=== PATIENT | female | born 1970 | race Caucasian/White ===

== ENCOUNTER 2019-09-20 17:26 | Inpatient (IN) | payer MEDICAID ==
[~2019-09-20] VITALS: Ht 167.6 cm; Wt 67.6 kg
[2019-09-20] MEDS ORDERED: LORazepam 2 MG/ML VIAL IM ONE (21:15)
[2019-09-20] MEDS ORDERED: HALOPERIDOL LACTATE 5 MG/ML VIAL IM ONE (21:15)
[2019-09-20] MEDS ORDERED: DiphenhydrAMINE HCL 50 MG/ML VIAL IM ONE (21:15)
[2019-09-20 22:36] LABS: LYMPHOCYTES # (AUTO) 0.6 K/uL (1.0-4.8); MONOCYTES # (AUTO) 0.5 K/uL (0.1-1.0)
[2019-09-20 22:41] LABS: BASOPHILS % (AUTO) 0.6 % (0.0-2.0); EOSINOPHILS % (AUTO) 0.2 % (1.0-6.0); HEMATOCRIT 33.3 % (36-46); LYMPHOCYTES % (AUTO) 22.1 % (22.0-44.0); MEAN CORPUSCULAR HEMOGLOBIN 28.6 pg (26.0-34.0); MEAN CORPUSCULAR VOLUME 87 fL (80-100); MONOCYTES % (AUTO) 16.7 % (2.0-9.0); NEUTROPHILS # (AUTO) 1.7 K/uL (1.8-7.7); NEUTROPHILS % (AUTO) 60.4 % (40.0-70.0); PLATELET COUNT (AUTO) 107 K/uL (150-450); RED BLOOD CELL COUNT(AUTO) 3.84 MIL/uL (4.00-5.20); RED CELL DISTRIBUTION WIDTH 19.9 % (11.5-14.5)
[2019-09-20 22:49] LABS: ANION GAP 12 mmol/L (8-16); CALCIUM, TOTAL 8.3 mg/dL (8.8-10.5); CARBON DIOXIDE 22 mmol/L (22-29); CHLORIDE 103 mmol/L (98-107); CREATININE 0.78 mg/dL (0.60-1.30); GLOMERULAR FILTR. RATE CALC > 60 mL/min (>60); GLUCOSE,RANDOM 104 mg/dL (70-110); POTASSIUM 3.9 mmol/L (3.5-5.1); SODIUM SERUM 137 mmol/L (136-145); UREA NITROGEN, BLOOD 8 mg/dL (7-18)
[2019-09-20 22:54] LABS: ALANINE AMINOTRANSFERASE 89 U/L (12-78); ALBUMIN 2.9 g/dL (3.4-5.0); ALKALINE PHOSPHATASE 184 U/L (46-116); ASPARTATE AMINOTRANSFERASE 130 U/L (15-37); BILIRUBIN,TOTAL 0.9 mg/dL (0.1-1.0)
[2019-09-20] MEDS ORDERED: HALOPERIDOL 5 MG TABLET PO PRN (23:15)
[2019-09-21 01:45] VITALS: BP 138/89
[2019-09-21] MEDS ORDERED: INFLUENZA VIRUS VACCINE QVS 2019-20 (3YR+)/PF 60 MCG/0.5 ML SYRINGE IM ONE (04:00)
[2019-09-21 07:44] LABS: CHOL/HDL RATIO 1.4 (3.9-5.7); CHOLESTEROL 114 mg/dL (131-200); HDL CHOLESTEROL 79 mg/dL (40-60)
[2019-09-21 08:01] LABS: TRIGLYCERIDES < 15 mg/dL (15-150)
[2019-09-21 08:02] LABS: LDL CHOL (CALC.) 32 mg/dL (0-130)
[2019-09-21 08:33] VITALS: BP 149/91
[2019-09-21] MEDS ORDERED: PETROLATUM,WHITE 28 GM JELLY TP PRN (09:15)
[2019-09-21] MEDS ORDERED: NICOTINE 14 MG/24 HOUR PATCH TD PRN (09:15)
[2019-09-21] MEDS ORDERED: ALBUTEROL SULFATE HFA 90 MCG/PUFF 8 GM INHALER IH PRN (09:15)
[2019-09-21] MEDS ORDERED: MAG HYDROX/AL HYDROX/SIMETH ES 30 ML SUSPENSION UDCUP PO PRN (09:15)
[2019-09-21] MEDS ORDERED: MAGNESIUM HYDROXIDE SUSPENSION 30 ML UDCUP PO PRN (09:15)
[2019-09-21] MEDS ORDERED: GuaiFENesin/D-METHORPHAN [SUGAR-FREE] 200-20MG/10 ML SYRUP UDCUP PO PRN (09:15)
[2019-09-21] MEDS ORDERED: ONDANSETRON HCL 4 MG TABLET PO PRN (09:15)
[2019-09-21] MEDS ORDERED: DOCUSATE SODIUM 100 MG CAPSULE PO PRN (09:15)
[2019-09-21] MEDS ORDERED: LOPERAMIDE HCL 2 MG CAPSULE PO PRN (09:15)
[2019-09-21] MEDS ORDERED: CloNIDine HCL 0.1 MG TABLET PO PRN (09:15)
[2019-09-21] MEDS ORDERED: OLANZapine 5 MG TABLET PO ONE (13:00)
[2019-09-21 16:15] VITALS: BP 132/68
[2019-09-21] MEDS: OLANZapine 2.5 MG TABLET PO SCH (16:48)
[2019-09-22 03:00] VITALS: BP 140/85
[2019-09-22 08:16] VITALS: BP 121/67
[2019-09-22] MEDS: OLANZapine 2.5 MG TABLET PO SCH ×2 (08:54→16:49)
[2019-09-22 16:08] VITALS: BP 126/73
[2019-09-23 05:29] VITALS: BP 109/66
[2019-09-23 08:19] VITALS: BP 116/71
[2019-09-23] MEDS: OLANZapine 2.5 MG TABLET PO SCH ×2 (09:05→16:45)
[2019-09-23 16:30] VITALS: BP 122/67
[2019-09-24 04:05] VITALS: BP 112/64
[2019-09-24] MEDS ORDERED: OLAN2.5T3 PO (06:28)
[2019-09-24] MEDS: OLANZapine 2.5 MG TABLET PO SCH ×2 (08:17→16:48)
[2019-09-24 08:20] VITALS: BP 100/57
[2019-09-24 16:43] VITALS: BP 117/63
[2019-09-25 05:21] VITALS: BP 112/62
[2019-09-25 08:17] VITALS: BP 119/62
[2019-09-25 08:29] LABS: BASOPHILS % (AUTO) 1.5 % (0.0-2.0); EOSINOPHILS % (AUTO) 1.9 % (1.0-6.0); HEMATOCRIT 37.7 % (36-46); HEMOGLOBIN 12.2 g/dL (12.0-16.0); LYMPHOCYTES # (AUTO) 1.5 K/uL (1.0-4.8); LYMPHOCYTES % (AUTO) 42.4 % (22.0-44.0); MEAN CORPUSCULAR HEMOGLOBIN 28.2 pg (26.0-34.0); MEAN CORPUSCULAR HGB CONC 32.3 G/dL (31.0-37.0); MEAN CORPUSCULAR VOLUME 87 fL (80-100); MONOCYTES # (AUTO) 0.5 K/uL (0.1-1.0); MONOCYTES % (AUTO) 14.7 % (2.0-9.0); NEUTROPHILS # (AUTO) 1.4 K/uL (1.8-7.7); NEUTROPHILS % (AUTO) 39.5 % (40.0-70.0); PLATELET COUNT (AUTO) 123 K/uL (150-450); RED BLOOD CELL COUNT(AUTO) 4.32 MIL/uL (4.00-5.20); RED CELL DISTRIBUTION WIDTH 19.8 % (11.5-14.5)
[2019-09-25] MEDS: OLANZapine 2.5 MG TABLET PO SCH ×2 (08:39→17:06)
[2019-09-25 16:30] VITALS: BP 103/52
[2019-09-26 04:59] VITALS: BP 100/62
[2019-09-26] MEDS: OLANZapine 2.5 MG TABLET PO SCH ×2 (08:15→18:19)
[2019-09-26 08:20] VITALS: BP 100/53
[2019-09-26 16:10] VITALS: BP 117/71
[2019-09-27 05:17] VITALS: BP 101/66
[2019-09-27 08:10] VITALS: BP 104/62
[2019-09-27] MEDS: OLANZapine 2.5 MG TABLET PO SCH ×2 (08:34→16:49)
[2019-09-27 16:21] VITALS: BP 114/61
[2019-09-28 05:06] VITALS: BP 102/64
[2019-09-28] MEDS: OLANZapine 2.5 MG TABLET PO SCH ×2 (08:08→16:07)
[2019-09-28 08:13] VITALS: BP 102/55
[2019-09-28 16:17] VITALS: BP 120/60
[2019-09-28 18:54] VITALS: BP 110/59
[2019-09-28] MEDS: ACETAMINOPHEN 325 MG TABLET PO PRN (18:54)
[2019-09-29 05:32] VITALS: BP 100/64
[2019-09-29 08:21] VITALS: BP 118/61
[2019-09-29] MEDS: OLANZapine 2.5 MG TABLET PO SCH ×2 (08:22→16:36)
[2019-09-29 16:06] VITALS: BP 103/71
[2019-09-30 05:23] VITALS: BP 120/77
[2019-09-30] MEDS: OLANZapine 2.5 MG TABLET PO SCH ×2 (08:13→16:46)
[2019-09-30 10:40] VITALS: BP 117/72
[2019-09-30 16:10] VITALS: BP 108/62
[2019-10-01 05:46] VITALS: BP 88/55
[2019-10-01] MEDS: OLANZapine 2.5 MG TABLET PO SCH ×2 (08:03→16:22)
[2019-10-01 08:41] VITALS: BP 99/58
[2019-10-01 16:16] VITALS: BP 100/60
[2019-10-02 06:23] VITALS: BP 110/60
[2019-10-02 08:22] VITALS: BP 99/58
[2019-10-02] MEDS: OLANZapine 2.5 MG TABLET PO SCH ×2 (08:41→16:54)
[2019-10-02 14:26] VITALS: BP 100/60
[2019-10-02 16:14] VITALS: BP 99/60
[2019-10-03 05:29] VITALS: BP 102/63
[2019-10-03 08:27] VITALS: BP 103/55
[2019-10-03] MEDS: OLANZapine 2.5 MG TABLET PO SCH ×2 (08:53→16:46)
[2019-10-03 16:44] VITALS: BP 100/60
[2019-10-04 05:31] VITALS: BP 99/64
[2019-10-04 08:30] VITALS: BP 100/59
[2019-10-04] MEDS: OLANZapine 2.5 MG TABLET PO SCH ×2 (09:21→16:31)
[2019-10-04 16:36] VITALS: BP 100/53
[2019-10-05 06:20] VITALS: BP 122/63
[2019-10-05 08:08] VITALS: BP 125/61
[2019-10-05] MEDS: OLANZapine 2.5 MG TABLET PO SCH ×2 (08:54→16:50)
[2019-10-05 12:37] VITALS: BP 120/81
[2019-10-05] MEDS: ACETAMINOPHEN 325 MG TABLET PO PRN (12:39)
[2019-10-05 16:18] VITALS: BP 113/66
[2019-10-05] MEDS: IBUPROFEN 400 MG TABLET PO PRN (18:05)
[2019-10-06 05:20] VITALS: BP 113/60
[2019-10-06 08:30] VITALS: BP 100/50
[2019-10-06] MEDS: OLANZapine 2.5 MG TABLET PO SCH ×2 (09:03→16:46)
[2019-10-06 12:34] VITALS: BP 108/68
[2019-10-06] MEDS: IBUPROFEN 400 MG TABLET PO PRN (12:34)
[2019-10-06] MEDS ORDERED: MULTIVITAMINS WITH MINERALS, THERAPEUTIC TABLET PO ONE (14:00)
[2019-10-06 17:19] VITALS: BP 100/50
[2019-10-07 05:08] VITALS: BP 102/62
[2019-10-07 08:20] VITALS: BP 109/67
[2019-10-07] MEDS: OLANZapine 2.5 MG TABLET PO SCH ×2 (08:35→16:05)
[2019-10-07 16:20] VITALS: BP 108/69
[2019-10-07] MEDS: IBUPROFEN 400 MG TABLET PO PRN (19:55)
[2019-10-08 04:08] VITALS: BP 102/62
[2019-10-08 08:21] VITALS: BP 105/57
[2019-10-08] MEDS: OLANZapine 2.5 MG TABLET PO SCH ×2 (08:53→16:42)
[2019-10-08] MEDS: IBUPROFEN 400 MG TABLET PO PRN (08:54)
[2019-10-08 16:00] VITALS: BP 102/65
[2019-10-09 05:14] VITALS: BP 105/66
[2019-10-09 08:08] VITALS: BP 114/63
[2019-10-09] MEDS: OLANZapine 2.5 MG TABLET PO SCH ×2 (08:15→16:29)
[2019-10-09 16:01] VITALS: BP 111/60
[2019-10-09] MEDS: IBUPROFEN 400 MG TABLET PO PRN (16:29)
[2019-10-09] MEDS: DICLOFENAC SODIUM 1% 100 GM GEL [2GM] TP PRN (16:29)
[2019-10-10 05:11] VITALS: BP 121/71
[2019-10-10 08:51] VITALS: BP 100/55
[2019-10-10] MEDS: OLANZapine 5 MG TABLET PO SCH ×2 (09:45→16:19)
[2019-10-10 16:12] VITALS: BP 103/64
[2019-10-11 04:42] VITALS: BP 101/62
[2019-10-11 08:28] VITALS: BP 100/55
[2019-10-11] MEDS: OLANZapine 5 MG TABLET PO SCH ×2 (08:32→16:01)
[2019-10-11] MEDS: DICLOFENAC SODIUM 1% 100 GM GEL [2GM] TP PRN ×2 (16:02→20:09)
[2019-10-11 16:16] VITALS: BP 100/60
[2019-10-11] MEDS: IBUPROFEN 400 MG TABLET PO PRN (17:48)
[2019-10-11] MEDS: ZOLPIDEM TARTRATE 10 MG TABLET PO PRN (20:20)
[2019-10-12 06:06] VITALS: BP 101/67
[2019-10-12 08:15] VITALS: BP 103/65
[2019-10-12] MEDS: OLANZapine 5 MG TABLET PO SCH ×2 (08:45→16:53)
[2019-10-12 16:50] VITALS: BP 99/68
[2019-10-12] MEDS: DICLOFENAC SODIUM 1% 100 GM GEL [2GM] TP PRN (16:53)
[2019-10-12] MEDS: IBUPROFEN 400 MG TABLET PO PRN (16:54)
[2019-10-13 05:17] VITALS: BP 104/68
[2019-10-13 08:15] VITALS: BP 100/59
[2019-10-13] MEDS: OLANZapine 5 MG TABLET PO SCH ×2 (08:27→16:22)
[2019-10-13 16:01] VITALS: BP 109/70
[2019-10-14 04:28] VITALS: BP 100/72
[2019-10-14] MEDS: OLANZapine 5 MG TABLET PO SCH ×2 (08:28→16:28)
[2019-10-14 13:17] VITALS: BP 96/58
[2019-10-14 16:28] VITALS: BP 101/85
[2019-10-14] MEDS: IBUPROFEN 400 MG TABLET PO PRN (16:28)
[2019-10-14 16:29] VITALS: BP 101/85
[2019-10-15 02:46] VITALS: BP 100/76
[2019-10-15 08:07] VITALS: BP 100/59
[2019-10-15] MEDS: OLANZapine 5 MG TABLET PO SCH ×2 (08:33→16:01)
[2019-10-15 16:06] VITALS: BP 100/63
[2019-10-16 07:03] VITALS: BP 110/68
[2019-10-16 08:16] VITALS: BP 100/53
[2019-10-16] MEDS: MULTIVITAMINS, THERAPEUTIC TABLET PO SCH (08:51)
[2019-10-16] MEDS: OLANZapine 5 MG TABLET PO SCH ×2 (08:51→16:57)
[2019-10-16 17:30] VITALS: BP 99/62
[2019-10-17 01:35] VITALS: BP 123/78
[2019-10-17 08:41] VITALS: BP 100/59
[2019-10-17] MEDS: OLANZapine 5 MG TABLET PO SCH ×2 (09:13→16:44)
[2019-10-17] MEDS: MULTIVITAMINS, THERAPEUTIC TABLET PO SCH (09:13)
[2019-10-17] MEDS: IBUPROFEN 400 MG TABLET PO PRN ×2 (10:14→16:44)
[2019-10-17 16:12] VITALS: BP 100/53
[2019-10-18 04:34] VITALS: BP 102/63
[2019-10-18 08:29] VITALS: BP 100/57
[2019-10-18] MEDS: LORazepam 2 MG TABLET PO PRN (09:52)
[2019-10-18] MEDS: OLANZapine 5 MG TABLET PO SCH ×2 (09:52→16:44)
[2019-10-18] MEDS: MULTIVITAMINS, THERAPEUTIC TABLET PO SCH (09:52)
[2019-10-18 16:02] VITALS: BP 102/63
[2019-10-18] MEDS: ZOLPIDEM TARTRATE 10 MG TABLET PO PRN (20:34)
[2019-10-18] MEDS: DICLOFENAC SODIUM 1% 100 GM GEL [2GM] TP PRN (20:34)
[2019-10-19 06:38] VITALS: BP 99/60
[2019-10-19 08:17] VITALS: BP 100/58
[2019-10-19] MEDS: OLANZapine 5 MG TABLET PO SCH ×2 (08:52→16:10)
[2019-10-19] MEDS: MULTIVITAMINS, THERAPEUTIC TABLET PO SCH (08:52)
[2019-10-19 16:04] VITALS: BP 100/69
[2019-10-19] MEDS: IBUPROFEN 400 MG TABLET PO PRN (17:16)
[2019-10-19] MEDS: LORazepam 2 MG TABLET PO PRN (21:07)
[2019-10-20 06:22] VITALS: BP 105/62
[2019-10-20 08:19] VITALS: BP 100/65
[2019-10-20] MEDS: MULTIVITAMINS, THERAPEUTIC TABLET PO SCH (09:10)
[2019-10-20] MEDS: OLANZapine 5 MG TABLET PO SCH ×2 (09:10→16:44)
[2019-10-20] MEDS: IBUPROFEN 400 MG TABLET PO PRN (16:44)
[2019-10-20 18:05] VITALS: BP 94/50
[2019-10-21 03:56] VITALS: BP 100/62
[2019-10-21 08:19] VITALS: BP 100/59
[2019-10-21] MEDS: MULTIVITAMINS, THERAPEUTIC TABLET PO SCH (08:47)
[2019-10-21] MEDS: OLANZapine 5 MG TABLET PO SCH ×2 (08:47→16:37)
[2019-10-21] MEDS: IBUPROFEN 400 MG TABLET PO PRN (16:37)
[2019-10-21 16:59] VITALS: BP 106/63
[2019-10-22 06:22] VITALS: BP 102/60
[2019-10-22 08:12] VITALS: BP 116/71
[2019-10-22] MEDS: MULTIVITAMINS, THERAPEUTIC TABLET PO SCH (09:17)
[2019-10-22] MEDS: OLANZapine 5 MG TABLET PO SCH ×2 (09:17→17:12)
[2019-10-22 17:02] VITALS: BP 127/53
[2019-10-22] MEDS: IBUPROFEN 400 MG TABLET PO PRN (17:12)
[2019-10-23 03:01] VITALS: BP 120/68
[2019-10-23 08:11] VITALS: BP 96/53
[2019-10-23] MEDS: OLANZapine 5 MG TABLET PO SCH ×2 (09:05→16:43)
[2019-10-23] MEDS: MULTIVITAMINS, THERAPEUTIC TABLET PO SCH (09:05)
[2019-10-23 20:26] VITALS: BP 101/57
[2019-10-24 03:58] VITALS: BP 100/63
[2019-10-24 08:19] VITALS: BP 100/59
[2019-10-24] MEDS: OLANZapine 5 MG TABLET PO SCH ×2 (08:52→17:10)
[2019-10-24] MEDS: MULTIVITAMINS, THERAPEUTIC TABLET PO SCH (08:52)
[2019-10-24 16:00] VITALS: BP 102/69
[2019-10-25 04:29] VITALS: BP 100/72
[2019-10-25 08:22] VITALS: BP 100/60
[2019-10-25] MEDS: OLANZapine 5 MG TABLET PO SCH ×2 (09:31→16:52)
[2019-10-25] MEDS: MULTIVITAMINS, THERAPEUTIC TABLET PO SCH (09:31)
[2019-10-25 17:45] VITALS: BP 125/69
[2019-10-26 01:43] VITALS: BP 121/62
[2019-10-26 08:25] VITALS: BP 100/62
[2019-10-26] MEDS: MULTIVITAMINS, THERAPEUTIC TABLET PO SCH (08:48)
[2019-10-26] MEDS: OLANZapine 5 MG TABLET PO SCH ×2 (08:48→17:27)
[2019-10-26 16:09] VITALS: BP 100/58
[2019-10-26] MEDS: LORazepam 2 MG TABLET PO PRN (17:27)
[2019-10-27 04:00] VITALS: BP 99/60
[2019-10-27 08:27] VITALS: BP 106/60
[2019-10-27] MEDS: OLANZapine 5 MG TABLET PO SCH ×2 (09:05→17:00)
[2019-10-27] MEDS: MULTIVITAMINS, THERAPEUTIC TABLET PO SCH (09:05)
[2019-10-27 17:29] VITALS: BP 101/58
[2019-10-28 04:39] VITALS: BP 100/63
[2019-10-28] MEDS: OLANZapine 5 MG TABLET PO SCH ×2 (08:02→16:37)
[2019-10-28] MEDS: MULTIVITAMINS, THERAPEUTIC TABLET PO SCH (08:02)
[2019-10-28 08:31] VITALS: BP 85/52
[2019-10-28 17:11] VITALS: BP 102/65
[2019-10-29 04:40] VITALS: BP 100/67
[2019-10-29] MEDS: OLANZapine 5 MG TABLET PO SCH ×2 (08:31→16:05)
[2019-10-29] MEDS: MULTIVITAMINS, THERAPEUTIC TABLET PO SCH (08:31)
[2019-10-29 09:34] VITALS: BP 101/62
[2019-10-29 16:04] VITALS: BP 100/62
[2019-10-30 05:48] VITALS: BP 122/56
[2019-10-30 08:08] VITALS: BP 100/59
[2019-10-30 08:22] LABS: BASOPHILS % (AUTO) 0.5 % (0.0-2.0); EOSINOPHILS % (AUTO) 3.1 % (1.0-6.0); HEMATOCRIT 39.7 % (36-46); HEMOGLOBIN 12.8 g/dL (12.0-16.0); LYMPHOCYTES # (AUTO) 1.3 K/uL (1.0-4.8); MEAN CORPUSCULAR HEMOGLOBIN 29.1 pg (26.0-34.0); MEAN CORPUSCULAR HGB CONC 32.4 G/dL (31.0-37.0); MEAN CORPUSCULAR VOLUME 90 fL (80-100); MONOCYTES # (AUTO) 0.4 K/uL (0.1-1.0); MONOCYTES % (AUTO) 13.7 % (2.0-9.0); NEUTROPHILS # (AUTO) 1.2 K/uL (1.8-7.7); NEUTROPHILS % (AUTO) 39.7 % (40.0-70.0); PLATELET COUNT (AUTO) 68 K/uL (150-450); RED BLOOD CELL COUNT(AUTO) 4.42 MIL/uL (4.00-5.20); RED CELL DISTRIBUTION WIDTH 21.6 % (11.5-14.5)
[2019-10-30] MEDS: MULTIVITAMINS, THERAPEUTIC TABLET PO SCH (08:54)
[2019-10-30] MEDS: OLANZapine 5 MG TABLET PO SCH (08:54)
[2019-10-30] MEDS ORDERED: OLAN5TAB2 PO (10:22)
== END 2019-10-30 14:00 | disposition home or self-care (01) | DRG 750 ==
LOC: EMS 17:32 → EDBD 17:32 → B3A 23:44
PROVIDERS: ADMIT Psychiatry & Neurology Child & Adolescent Psychiatry; ATTEND Psychiatry & Neurology Child & Adolescent Psychiatry
DX: F20.0 Paranoid schizophrenia (principal); D61.818 Other pancytopenia; K70.30 Alcoholic cirrhosis of liver without ascites; F10.129 Alcohol abuse with intoxication, unspecified; Z59.0 Homelessness
CPT/HCPCS: G0480; J1200; J1630; J2060

== ENCOUNTER 2019-11-11 14:57 | Emergency (ER) | payer MEDICAID ==
[~2019-11-11] VITALS: Ht 160 cm; Wt 63.6 kg
[~2019-11-11 14:57] MED LIST: DULO20CA30 PO; FOLI-130 PO; HALO10 PO; IRON1TAB84 PO; OLAN5TAB2 PO; THIA1002I PO
[2019-11-11 16:20] LABS: EOSINOPHILS % (AUTO) 1.5 % (1.0-6.0); HEMOGLOBIN 10.4 g/dL (12.0-16.0); LYMPHOCYTES # (AUTO) 1.5 K/uL (1.0-4.8); MEAN CORPUSCULAR HEMOGLOBIN 31.6 pg (26.0-34.0); MEAN CORPUSCULAR HGB CONC 34.5 G/dL (31.0-37.0); MEAN CORPUSCULAR VOLUME 92 fL (80-100); MONOCYTES # (AUTO) 0.8 K/uL (0.1-1.0); MONOCYTES % (AUTO) 17.4 % (2.0-9.0); NEUTROPHILS # (AUTO) 2.3 K/uL (1.8-7.7); NEUTROPHILS % (AUTO) 49.1 % (40.0-70.0); PLATELET COUNT (AUTO) 112 K/uL (150-450); RED BLOOD CELL COUNT(AUTO) 3.28 MIL/uL (4.00-5.20)
[2019-11-11 16:49] LABS: ANION GAP 9 mmol/L (8-16); CALCIUM, TOTAL 7.9 mg/dL (8.8-10.5); CARBON DIOXIDE 23 mmol/L (22-29); CHLORIDE 103 mmol/L (98-107); GLOMERULAR FILTR. RATE CALC > 60 mL/min (>60); GLUCOSE,RANDOM 106 mg/dL (70-110); POTASSIUM 3.4 mmol/L (3.5-5.1); SODIUM SERUM 135 mmol/L (136-145); UREA NITROGEN, BLOOD 6 mg/dL (7-18)
[2019-11-11 17:05] LABS: ALANINE AMINOTRANSFERASE 63 U/L (12-78); ALBUMIN 2.4 g/dL (3.4-5.0); ALKALINE PHOSPHATASE 116 U/L (46-116); ASPARTATE AMINOTRANSFERASE 64 U/L (15-37); BILIRUBIN,TOTAL 1.4 mg/dL (0.1-1.0); HCG,QUANTITATIVE < 1 mIU/mL (0-6); TOTAL PROTEIN, SERUM 7.4 g/dL (6.4-8.2)
[2019-11-11 17:08] LABS: LACTIC ACID 2.3 mmol/L (0.4-2.0)
[2019-11-11 18:00] LABS: INFLUENZA TYPE A NEGATIVE FOR TYPE A (NEGATIVE); INFLUENZA TYPE B NEGATIVE FOR TYPE B (NEGATIVE)
[2019-11-11] MEDS ORDERED: THIA100T67 PO (18:34)
[2019-11-11] MEDS ORDERED: SODIUM CHLORIDE 0.9% 1,000 ML IV ONE (18:45)
[2019-11-11 19:06] LABS: APPEARANCE,URINE CLOUDY (CLEAR); GLUCOSE, URINE (UA) NEGATIVE (NEGATIVE); KETONES,URINE TRACE mg/dL (NEGATIVE); LEUKOCYTE ESTERASE ,URINE MODERATE (NEGATIVE); NITRATE,URINE NEGATIVE (NEGATIVE); OCCULT BLOOD,URINE NEGATIVE (NEGATIVE); PROTEIN,URINE NEGATIVE (NEGATIVE); UROBILINOGEN,URINE >=8.0 mg/dL (<=1.0)
[2019-11-11 19:08] LABS: BILIRUBIN,URINE PRELIM. POSITIVE (NEGATIVE)
[2019-11-11 19:16] LABS: BACTERIA,URINE Few /HPF (None Seen); RBC,URINE None Seen /HPF (0-2)
[2019-11-11 19:17] LABS: SQUAMOUS EPITHELIAL CELL,UR Many /LPF (None Seen)
[2019-11-11 21:45] VITALS: BP 112/68
== END 2019-11-11 21:46 | disposition home or self-care (01) ==
LOC: EMS 15:06
DX: B34.9 Viral infection, unspecified (principal); Z03.818 Encounter for observation for suspected exposure to other biological agents ruled out
CPT/HCPCS: 83605; 87086; 87635; 87804

== ENCOUNTER 2021-11-10 11:12 | Emergency (ER) | payer MEDICAID ==
[~2021-11-10] VITALS: Ht 167.6 cm; Wt 68.2 kg
[~2021-11-10 11:12] MED LIST changes: -DULO20CA30 PO; +DULO20CA71 PO; -OLAN5TAB2 PO; +OLAN5TAB52 PO; +OLAN7.5T22 PO; +SERT-440 PO; -THIA1002I PO; +THIAMINE HCL100 MG PO
[2021-11-10 11:13] VITALS: BP 128/79
[2021-11-10] MEDS ORDERED: AMOX1TAB16 PO (11:52)
[2021-11-10] MEDS ORDERED: GABA-1181 PO (11:52)
[2021-11-10] MEDS ORDERED: IBUPROFEN 600 MG TABLET PO ONE (12:00)
[2021-11-10] MEDS ORDERED: AMOX TR/POT CLAV 875 MG/125 MG TABLET PO ONE (12:00)
[2021-11-10] MEDS ORDERED: GABAPENTIN 300 MG CAPSULE PO ONE (12:00)
== END 2021-11-10 12:41 | disposition home or self-care (01) ==
LOC: MERGE 11:16 → EMS 11:16
DX: L03.211 Cellulitis of face (principal); S60.561A Insect bite (nonvenomous) of right hand, initial encounter; W57.XXXA Bitten or stung by nonvenomous insect and other nonvenomous arthropods, initial encounter; Y93.89 Activity, other specified; Y92.89 Other specified places as the place of occurrence of the external cause; Y99.8 Other external cause status
CPT/HCPCS: 99284; Z7502; Z7610

== ENCOUNTER 2022-06-26 16:35 | Emergency (ER) | payer MEDICAID ==
[~2022-06-26] VITALS: Ht 167.6 cm; Wt 56.8 kg
[~2022-06-26 16:35] MED LIST changes: +AMOX1TAB16 PO; +GABA-1181 PO; -HALO10 PO; +HALO10TA21 PO
[2022-06-26 22:31] LABS: HEMOGLOBIN 8.5 g/dL (12.0-16.0); LYMPHOCYTES # (AUTO) 0.8 K/uL (1.0-4.8); MEAN CORPUSCULAR HEMOGLOBIN 28.7 pg (26.0-34.0); MONOCYTES # (AUTO) 0.4 K/uL (0.1-1.0)
[2022-06-26 22:38] LABS: BASOPHILS % (AUTO) 0.9 % (0.0-2.0); EOSINOPHILS % (AUTO) 3.2 % (1.0-6.0); HEMATOCRIT 26.2 % (36-46); LYMPHOCYTES % (AUTO) 24.8 % (22.0-44.0); MEAN CORPUSCULAR HGB CONC 32.6 G/dL (31.0-37.0); MEAN CORPUSCULAR VOLUME 88 fL (80-100); MONOCYTES % (AUTO) 11.5 % (2.0-9.0); NEUTROPHILS % (AUTO) 59.6 % (40.0-70.0); RED BLOOD CELL COUNT(AUTO) 2.98 MIL/uL (4.00-5.20); RED CELL DISTRIBUTION WIDTH 19.7 % (11.5-14.5)
[2022-06-26 22:55] LABS: PLATELET COUNT (AUTO) 83 K/uL (150-450); PLATELET MORPHOLOGY COMMENT LARGE PLTS PRESENT
[2022-06-26 22:57] LABS: APPEARANCE,URINE HAZY (CLEAR); GLUCOSE, URINE (UA) NEGATIVE (NEGATIVE); KETONES,URINE TRACE mg/dL (NEGATIVE); LEUKOCYTE ESTERASE ,URINE LARGE (NEGATIVE); NITRATE,URINE NEGATIVE (NEGATIVE); OCCULT BLOOD,URINE NEGATIVE (NEGATIVE); PH,URINE 5.5 (5.0-8.0); PROTEIN,URINE NEGATIVE (NEGATIVE); SPECIFIC GRAVITIY, URINE 1.019 (1.003-1.030)
[2022-06-26 23:03] LABS: BILIRUBIN,URINE SMALL (NEGATIVE)
[2022-06-26 23:06] LABS: ANION GAP 6 mmol/L (8-16); CALCIUM, TOTAL 8.2 mg/dL (8.8-10.5); CARBON DIOXIDE 24 mmol/L (22-29); CHLORIDE 101 mmol/L (98-107); CREATININE 0.73 mg/dL (0.60-1.30); GLUCOSE,RANDOM 86 mg/dL (70-110); POTASSIUM 3.6 mmol/L (3.5-5.1); SODIUM SERUM 131 mmol/L (136-145); UREA NITROGEN, BLOOD 6 mg/dL (7-18)
[2022-06-26 23:09] LABS: BACTERIA,URINE Many /HPF (None Seen); RBC,URINE 0-2 /HPF (0-2); SQUAMOUS EPITHELIAL CELL,UR Few /LPF (None Seen)
[2022-06-26 23:11] LABS: ALKALINE PHOSPHATASE 207 U/L (46-116); ASPARTATE AMINOTRANSFERASE 71 U/L (15-37); BILIRUBIN,TOTAL 2.8 mg/dL (0.1-1.0); LIPASE 133 U/L (73-393); TOTAL PROTEIN, SERUM 7.7 g/dL (6.4-8.2)
[2022-06-26 23:13] LABS: GLOMERULAR FILTR. RATE CALC > 60 mL/min (>60)
[2022-06-26 23:22] LABS: ALANINE AMINOTRANSFERASE 32 U/L (12-78)
[2022-06-26] MEDS ORDERED: CEPHALEXIN MONOHYDRATE 500 MG CAPSULE PO ONE (23:30)
[2022-06-27] MEDS ORDERED: TRAM-559 PO (03:12)
[2022-06-27] MEDS ORDERED: CEPH-558 PO (03:12)
[2022-06-27 06:15] VITALS: BP 117/68
== END 2022-06-27 06:49 | disposition home or self-care (01) ==
LOC: MERGE 16:38 → EDBD 16:38 → EMS 16:38
DX: S22.009A Unspecified fracture of unspecified thoracic vertebra, initial encounter for closed fracture (principal); N39.0 Urinary tract infection, site not specified; F17.210 Nicotine dependence, cigarettes, uncomplicated; W19.XXXA Unspecified fall, initial encounter; Y93.89 Activity, other specified; Y92.89 Other specified places as the place of occurrence of the external cause; Y99.8 Other external cause status
CPT/HCPCS: 72072; 72100; 74022; 80053; 81001; 83690; 84484; 85025; 87086; 87186; 93005; 99285

== ENCOUNTER 2022-07-03 07:43 | Emergency (ER) | payer MEDICAID ==
[~2022-07-03] VITALS: Ht 165.1 cm; Wt 59.1 kg
[~2022-07-03 07:43] MED LIST changes: +CEPH-558 PO; +TRAM-559 PO
[2022-07-03] MEDS ORDERED: ACETAMINOPHEN 500 MG TABLET PO ONE (09:30)
[2022-07-03] MEDS ORDERED: SULFAMETHOX/TRIMETH DS 800-160 MG/TABLET PO ONE (09:30)
[2022-07-03 11:04] VITALS: BP 135/82
== END 2022-07-03 11:20 | disposition home or self-care (01) ==
LOC: EMS 07:54
DX: S40.261A Insect bite (nonvenomous) of right shoulder, initial encounter (principal); F20.9 Schizophrenia, unspecified; F17.210 Nicotine dependence, cigarettes, uncomplicated; Z59.02 Unsheltered homelessness; W57.XXXA Bitten or stung by nonvenomous insect and other nonvenomous arthropods, initial encounter; Y93.84 Activity, sleeping; Y92.830 Public park as the place of occurrence of the external cause; Y99.8 Other external cause status
CPT/HCPCS: 99283